=== PATIENT | female | born 1970 | race Caucasian/White ===

== ENCOUNTER 2018-05-01 12:27 | Emergency (ER) | payer OTHER ==
[2018-05-01 12:56] LABS: URINE BLOOD (Dip) POC 3+ (NEGATIVE); URINE GLUCOSE (Dip) POC Negative (NEGATIVE); URINE KETONES (Dip) POC Negative (NEGATIVE); URINE LEUKOCYTE EST (Dip) POC 3+ (NEGATIVE); URINE NITRITE (Dip) POC Negative (NEGATIVE); URINE TOTAL PROTEIN POC 2+ (NEGATIVE)
== END 2018-05-01 13:30 | disposition home or self-care (01) ==
LOC: FTE 12:27
DX: N39.0 Urinary tract infection, site not specified (principal); R31.9 Hematuria, unspecified
CPT/HCPCS: 81003; 81025; 99283

== ENCOUNTER 2018-06-15 16:42 | Emergency (ER) | payer OTHER ==
[2018-06-15 19:19] LABS: URINE BLOOD (Dip) POC 1+ (NEGATIVE); URINE GLUCOSE (Dip) POC Negative (NEGATIVE); URINE KETONES (Dip) POC Negative (NEGATIVE); URINE LEUKOCYTE EST (Dip) POC Negative (NEGATIVE); URINE NITRITE (Dip) POC Negative (NEGATIVE); URINE TOTAL PROTEIN POC Negative (NEGATIVE)
== END 2018-06-15 20:09 | disposition home or self-care (01) ==
LOC: FTE 16:42
DX: R10.32 Left lower quadrant pain (principal); R10.2 Pelvic and perineal pain
CPT/HCPCS: 81003; 81025; 99282

== ENCOUNTER 2018-06-18 00:19 | Emergency (ER) | payer OTHER | END 2018-06-18 01:45 | disposition home or self-care (01) | LOC: FTE 00:19 | DX: A60.1 Herpesviral infection of perianal skin and rectum (principal) | CPT/HCPCS: 99284 ==